=== PATIENT | female | born 1965 | race Caucasian/White ===

== ENCOUNTER → 2019-01-20 16:05 | Outpatient (CLI) | payer SELFPAY ==
--- NOTE | 2019-01-20 16:13 | BD_ITS ---
STUDY: DUAL ENERGY X-RAY ABSORPTIOMETRY / DXA REASON FOR EXAM: Female, 53 years old. Postmenopausal TECHNIQUE: Bone Mineral Density (BMD) measurements of lumbar spine and bilateral hips were obtained. COMPARISON: 07/21/2015 FINDINGS: Lumbar Spine (L1-L4): g/cm2 (0.873) / T-score (-2.6) / Z-score (-1.8) Findings are suggestive of osteoporosis with a high fracture risk. Left Femur Total: g/cm2 (0.776) / T-score (-1.8) / Z-score (-1.2) Left Femoral Neck: g/cm2 (0.73) / T-score (-1.8) / Z-score (-0.8) Right Femur Total: g/cm2 (0.808) / T-score (-1.6) / Z-score (-1) Right Femoral Neck: g/cm2 (0.828) / T-score (-1.5) / Z-score (-0.5) BD/Dexa Bone Density Study IMPRESSION: The patient is considered osteoporotic as outlined below according to World Yao Organization (WHO) criteria with a high fracture risk. There has been worsening of bone density since the previous examination. Reference Information: The T-score is the number of standard deviations above or below the standard which is normal for young adults at their peak bone mineral density. The World Health Organization (WHO) interprets the T-scores as follows: Above -1 Normal bone density Between -1 and -2.5 Osteopenia Equal to / or below -2.5 Osteoporosis As a practical clinical guideline, osteopenia may be graded as follows: Mild -1 through -1.5 Moderate -1.6 through -2.0 Severe -2.1 through -2.4 The Z-score is the number of standard deviations above or below age-matched controls. A Z-score of less than -1.5 would be considered abnormal. References: 1. NIH Osteoporosis and Related Bone Diseases http://www.osteo.org 2. International Society for Clinical Densitometry http://www.iscd.org 3. National Osteoporosis Foundation http://www.nof.org Electronically Signed: Loki Robles MD at 7:08 EST Tel , Service support ,
== END ==
PROVIDERS: Family Provider Family Medicine; PCP Family Medicine; Referring Provider Family Medicine; Visit Provider Family Medicine
DX: Z87.39 Personal history of other diseases of the musculoskeletal system and connective tissue (principal)
CPT/HCPCS: 77080

== ENCOUNTER 2019-04-21 05:10 | Day surgery (SDC) | payer BC, SELFPAY ==
[2019-04-21] VITALS (8 sets, daily range): BP systolic 90–116; BP diastolic 63–82; PULSE 51–80; RESP 16; TEMP 36.5–37.1; O2SAT 16–100; BMI 30.7
--- NOTE | 2019-04-21 06:10 | PCM.HP.STD ---
Problem List (1) Screening for intestinal cancer Status: Acute History of Present Illness Date of Admission: 04/21/19 The patient is a 53 year old F who presents today for a screening colonoscopy. Her last colonoscopy in 2008. She has not had a personal history of colon polyps or colon cancer. She does however have a new history who a brother at age 57 has of colon cancer. She herself denies any bright red blood per rectum or melena. She has enjoyed stable health. She denies any cardiopulmonary disease. Her weight is been stable. Past Medical History Allergies No Known Allergies Allergy (Verified 04/17/19 15:09) Home Medications: Ambulatory Orders Medication Instructions Recorded Aspirin [Aspir 81] 81 mg PO DAILY 04/17/19 Multivitamin with Minerals 1 each PO DAILY 04/17/19 [Multiple Vitamin] Omeprazole [Prilosec] 40 mg PO QHS 04/17/19 Smoking Status: Former smoker Tobacco Use: Non-smoker Review of Systems Constitutional: Denies: Anorexia HEENT: Denies: Difficulty Swallowing Cardiovascular: Denies: Chest Pain, Chest Pressure Respiratory: Denies: Cough Gastrointestinal: Denies: Abdominal Pain, Hematochezia, Melena Neurological: Denies: Balance problems Endocrine: Denies: Change in Body Habitus VTE Information - Inpt Only VTE Present on Admission: No Patient Problems: Active and Suspected Problems Screening for intestinal cancer (Acute) - Physical Exam General: Alert, Oriented x3, Cooperative, No apparent distress HEENT: Atraumatic Oral: Moist Mucosa Neck: Supple Lungs: Clear to auscultation Cardiovascular: Regular rate, Regular Rhythm Abdomen: Bowel Sounds Present, Soft, Non Tender, Non-Distended Extremities: No clubbing, No Calf Tenderness Psych/Mental Status: Normal Affect Vital Signs Temp Pulse Resp BP Pulse Ox 98.6 F 51 L 16 111/70 16 04/21/19 05:46 04/21/19 05:46 04/21/19 05:46 04/21/19 05:46 04/21/19 05:46 Oxygen Delivery Method Room Air Weight: 187 lb 2.759 oz Body Mass Index (BMI) 30.7 Assessment/Plan All Active Problems Screening for intestinal cancer (Acute) I recommended the patient a screening colonoscopy with possible biopsy or polypectomy as indicated. She is aware of the technique, benefits, risks, alternatives she has had an opportunity to ask and have questions answered. Based upon the newer information that she has a brother who is now recently from colon cancer that the minimum requirement after this colonoscopy will be follow-up surveillance at 5 years. She presents via our open access program today Jordan Torres M.D., F.A.C.S.
--- NOTE | 2019-04-21 06:50 | OP.ENDO_ITS ---
04/21/2019 Pete Frarie [address] [place] [address] Re : Colonoscopy procedure for Tierra Holelijah Dear Dr. Fraire This procedure was performed on Sunday, April 21, 2019. My impressions and recommendations are as follows: Impressions : - Hemorrhoids found on perianal exam. - Diverticulosis in the sigmoid colon. - The examination was otherwise normal. - No specimens collected. Recommendations : - Discharge patient to home. - Resume previous diet. - Continue present medications. - Repeat colonoscopy in 5 years for surveillance because of new history of a brother who recently from colon cancer. My findings are described in the full procedure note, which is enclosed. If I can be of further assistance, please feel free to contact me at Doctor phone number(s): Work: . Sincerely, Jordan Torres MD 04/21/2019 6:49:32 AM This report has been signed electronically.
== END 2019-04-21 07:37 | disposition home or self-care (01) ==
LOC: EN 05:11 → AC 05:12
PROVIDERS: Family Provider Family Medicine; PCP Family Medicine; Referring Provider Family Medicine; Visit Provider Surgery
PROC: 0DJD8ZZ Inspection of Lower Intestinal Tract, Via Natural or Artificial Opening Endoscopic (ICD-10-PCS; CPT 45378; principal; 2019-04-21 06:25)
DX: Z12.11 Encounter for screening for malignant neoplasm of colon (principal); Z80.0 Family history of malignant neoplasm of digestive organs; Z87.891 Personal history of nicotine dependence; K64.9 Unspecified hemorrhoids; K57.30 Diverticulosis of large intestine without perforation or abscess without bleeding
CPT/HCPCS: 45378; 99152; 99153; J7120